=== PATIENT | female | born 1985 | race Caucasian/White ===

== ENCOUNTER 2016-08-16 12:49 | Emergency (ER) | payer OTHER ==
[~2016-08-16] VITALS: Ht 162.6 cm; Wt 99.8 kg
--- NOTE | 2016-08-16 13:25 | Urgent Treatment Center Report ---
History of Present Issue Date/Time Seen by Provider 08/16/16 1302 Visit Reason Pt arrived:Walked Presenting Problem:COUGH,CONGESTION, ACHEY Location if Accident: Onset of symptoms date/time:/ or onset unknown for:MEDICAL HX UNKNOWN Have you (or family members/close friends) recently traveled outside the [place]? N If Yes, where/when: Have you had exposure to infectious disease within the past month? TB? Other? Specify: Patient states that she is 22 weeks and having cough, congestion and aching all over states that she was recently exposed to the flu ALLERGIES Coded Allergies: amoxicillin (Mild, 08/16/16) Home Medications Reported Medications No Known Home Medications History Medical History General CAD? No Angina: No [place]: No Hypertension? No Hyperlipidemia? No CHF? No DVT? No PE? No COPD? No Asthma? No Anemia? No GERD? No Gastric ulcers? No GI Bleed? No Hernia? No Thyroid Problems? No Hypothyroidism? No CVA? No Seizures? No Diabetes? No Renal Insuffiency? No UTI? No Stones? No BPH? No GB Disease: No Nephritic Syndrome? No Asplenia? No Hepatitis? No Sickle Cell Disease? No Arthritis? No Migraines? No Cataracts? No Glaucoma? No MRSA? No HIV? No TB? No Anxiety? No Depression? No Cancer? No More? No Immunization HX DT/Tetanus 1-4 Years Ago Surgical Hx Previous Surgery?N Social History Smoking Hx Smoker: Never Smoker Tobacco: No Review of Systems All Other Systems Reviewed and Negative Physical Exam Vital Signs Vital Signs Date Time Temp Pulse Resp B/P Pulse O2 O2 Flow FiO2 Ox Delivery Rate 08/16 1315 98.0 72 16 133/74 99 General Appearance normal appearance, no apparent distress Ear, Nose, Throat throat red irritated drainage noted Respiratory Status Yes: trachea midline, chest symmetrical, non tender chest. No: respiratory distress. Cardiovascular normal exam, no peripheral edema, no gallop, no JVD, no murmur Neurologic alert, normal exam Medical Decision Making LABS/Meds/Orders Pt receiving controlled substance in ED? No Results/Orders Laboratory Tests 08/16/16 1307: Influenza Type A Ag NOT DETECTED, Influenza Type B Ag NOT DETECTED Orders Procedure Date/time Status [facility] FLU A,B 08/16 1307 Complete Departure Departure Time of Disposition 1323 Disposition DC Home or Self Care(routine) Clinical Impression Primary Impression: Viral URI with cough Condition STABLE Patient Instructions DI for Viral Upper Respiratory Infection -- Adult Additional Instructions Follow up with OBGYN Return to [facility] if needed Discharge Counseling Counseled pt/family regarding diagnosis, home care, follow up needs Prescriptions Current Visit Scripts No Known Home Medications at 1322
--- NOTE | 2016-08-16 13:25 | Urgent Treatment Center Report ---
History of Present Issue Date/Time Seen by Provider 08/16/16 1302 Visit Reason Pt arrived:Walked Presenting Problem:COUGH,CONGESTION, ACHEY Location if Accident: Onset of symptoms date/time:/ or onset unknown for:MEDICAL HX UNKNOWN Have you (or family members/close friends) recently traveled outside the [place]? N If Yes, where/when: Have you had exposure to infectious disease within the past month? TB? Other? Specify: Patient states that she is 22 weeks and having cough, congestion and aching all over states that she was recently exposed to the flu ALLERGIES Coded Allergies: amoxicillin (Mild, 08/16/16) Home Medications Reported Medications No Known Home Medications History Medical History General CAD? No Angina: No [place]: No Hypertension? No Hyperlipidemia? No CHF? No DVT? No PE? No COPD? No Asthma? No Anemia? No GERD? No Gastric ulcers? No GI Bleed? No Hernia? No Thyroid Problems? No Hypothyroidism? No CVA? No Seizures? No Diabetes? No Renal Insuffiency? No UTI? No Stones? No BPH? No GB Disease: No Nephritic Syndrome? No Asplenia? No Hepatitis? No Sickle Cell Disease? No Arthritis? No Migraines? No Cataracts? No Glaucoma? No MRSA? No HIV? No TB? No Anxiety? No Depression? No Cancer? No More? No Immunization HX DT/Tetanus 1-4 Years Ago Surgical Hx Previous Surgery?N Social History Smoking Hx Smoker: Never Smoker Tobacco: No Review of Systems All Other Systems Reviewed and Negative Physical Exam Vital Signs Vital Signs Date Time Temp Pulse Resp B/P Pulse O2 O2 Flow FiO2 Ox Delivery Rate 08/16 1315 98.0 72 16 133/74 99 General Appearance normal appearance, no apparent distress Ear, Nose, Throat throat red irritated drainage noted Respiratory Status Yes: trachea midline, chest symmetrical, non tender chest. No: respiratory distress. Cardiovascular normal exam, no peripheral edema, no gallop, no JVD, no murmur Neurologic alert, normal exam Medical Decision Making LABS/Meds/Orders Pt receiving controlled substance in ED? No Results/Orders Laboratory Tests 08/16/16 1307: Influenza Type A Ag NOT DETECTED, Influenza Type B Ag NOT DETECTED Orders Procedure Date/time Status [facility] FLU A,B 08/16 1307 Complete Departure Departure Time of Disposition 1323 Disposition DC Home or Self Care(routine) Clinical Impression Primary Impression: Viral URI with cough Condition STABLE Patient Instructions DI for Viral Upper Respiratory Infection -- Adult Additional Instructions Follow up with OBGYN Return to [facility] if needed Discharge Counseling Counseled pt/family regarding diagnosis, home care, follow up needs Prescriptions Current Visit Scripts No Known Home Medications at 1327
[2016-08-16 13:31] VITALS: BP 133/74
== END 2016-08-16 13:31 | disposition home or self-care (01) ==
LOC: UTC 12:49
DX: J06.9 Acute upper respiratory infection, unspecified (principal)